=== PATIENT | female | born 1960 | race Caucasian/White ===

== ENCOUNTER 2019-10-28 13:57 | Observation (INO) | payer OTHER ==
--- OUTSIDE RECORDS SUMMARY | 2019-10-28 14:00 | XMS REPORT | Continuity of Care Document ---
:1960 Author Organization [employer] Information [facility] Care Team Providers Name Role Phone [employer] [facility] Unavailable Un available Problems Problem Status Onset Classification Date Comments Sourc e Date Reported Multiple Active 08/05/2013 [facility] S[facility] Medications Medication Details Route Status Patient Ordering Order Source Instructions Provider Date Baclofen 20 MG ; Start Active [facility] Oral Tablet Date: 013 [facility] 3 (Active) Treximet 85-500 ; Start Active [facility] Oral Tablet Date: 013 [facility] 3 (Active) Pristiq 50 MG ; Start Active [facility] Oral Tablet Date: 012 [facility] Extended Release 24 Hour 2 (Active) BusPIRone HCl 10 ; Start Active [facility] Oral Tablet Date: 012 [facility] 2 (Active) Trilipix 135 MG ; Start Active [facility] Oral Capsule Date: 012 [facility] Delayed Release 2 (Active) Hydrocodone-Aceta ; Start Active [facility] minophen 7.5-750 Date: 012 [facility] MG TABS 2 (Active) Transderm-Scop ; Start Active [facility] 1.5 MG Date: 012 [facility] Transdermal Patch 72 Hour 2 (Active) Abilify 10 MG ; Start Active [facility] Oral Tablet Date: 012 [facility] 2 (Active) TiZANidine HCl 2 ; Start Active [facility] Oral Tablet Date: 012 [facility] 2 (Active) Abilify 5 MG Oral ; Start Active [facility] Tablet Date: 012 [facility] 2 (Active) Hydrocodone-Aceta ; Start Active [facility] minophen 7.5-750 Date: 012 [facility] MG Oral Tablet 2 (Active) Imitrex 50 MG ; Start Active [facility] Oral Tablet Date: 012 [facility] 2 (Active) Baclofen 20 MG ; Start Active [facility] Oral Tablet Date: 011 [facility] 1; End Date: 0 (Active) Estradiol 2 MG ; Start Active [facility] Oral Tablet Date: 009 [facility] 9 (Active) Singulair 10 MG ; Start Active [facility] Oral Tablet Date: 009 [facility] 9 (Active) Vytorin 10-40 MG ; Start Active [facility] Oral Tablet Date: 009 [facility] 9 (Active) Copaxone 20 MG/ML ; Start Active [facility] Subcutaneous Kit Date: 008 [facility] 8 (Active) Amantadine HCl ; Start Active [facility] 100 MG Oral Date: 008 [facility] Capsule 8 (Active) Detrol LA 4 MG ; Start Active [facility] Oral Capsule Date: 008 [facility] Extended Release 24 Hour 8 (Active) Cyclobenzaprine ; Start Inactive [facility] HCl 10 MG Oral Date: 900 [facility] Tablet 0; End Date: 0 (Active) Imitrex 6 (Active) Active [facility] MG/0.5ML [facility] Subcutaneous Solution TraZODone HCl 100 (Active) Active [facility] Oral Tablet [facility] Cyclobenzaprine (Active) Active [facility] HCl 10 MG Oral [facility] Tablet Allergies, Adverse Reactions, Alerts Substance Category Reaction Severity Reaction Status Date Comments S ource type Reported No Known drug drug Active [facility] Drug allergy allergy [facility] Allergies Immunizations No Data Provided for This Section Results No Data Provided for This Section Pathology Reports No Data Provided for This Section Diagnostic Reports No Data Provided for This Section Consultation Notes No Data Provided for This Section Discharge Summaries No Data Provided for This Section History and Physicals No Data Provided for This Section Vital Signs No Data Provided for This Section Encounters Location Location Encounter Encounter Reason Attending ADM DC Stat Source Details Type Number For Provider Date Date Visit AUDIT [id number] 03/26 [facility] AUDIT [id number] 09/24 [facility] AUDIT [id number] 10/30 [facility] IES, [id number] 04/01 10/30 [facility] Provider: /2012 [facility] CHRISTINA Cota Y, Status: Pen, Time: 1:00 PM AUDIT [id number] 04/01 [facility] AUDIT [id number] 08/05 08/05 [facility] Procedures No Data Provided for This Section Assessment and Plan No Data Provided for This Section Plan of Care No Data Provided for This Section Social History Social History Date Source No Tobacco Use 08/05/2013 [facility] (Denied) No Alcohol (Denied) No Drug Use (Denied) Never A Smoker (Active) Family History Value Date Source No Family history of Family 08/05/2013 [facility] History (Denied) No Family history of Family 04/01/2013 [facility] History (Denied) No Family history of Family 10/30/2012 [facility] History (Denied) No Family history of Family 09/24/2012 [facility] History (Denied) No Family history of Family 03/26/2012 [facility] History (Denied) Advance Directives Order Name Results Value Date Source Advance Directives Advance Directives No Advance 08/05/2013 [facility] Directives available. Advance Directives Advance Directives No Advance 04/01/2013 [facility] Directives available. Advance Directives Advance Directives No Advance 10/30/2012 [facility] Directives available. Advance Directives Advance Directives No Advance 09/24/2012 [facility] Directives available. Advance Directives Advance Directives No Advance 03/26/2012 [facility] Directives available. Functional Status No Data Provided for This Section
[2019-10-28] MEDS ORDERED: FENTANYL CITR 100 MCG/2 ML ONE (14:20)
[2019-10-28] MEDS ORDERED: MIDAZOLAM HCL 2 MG/2 ML INJ ONE (14:20)
[2019-10-28] MEDS ORDERED: LIDOCAINE 1% MPF 5 ML VIAL ONE (14:20)
[2019-10-28] MEDS ORDERED: propofoL 200 MG/20 ML VIAL IV ONE (14:20)
[2019-10-28] MEDS: NS 0.9% VIAL 10 ML ONE ×2 (14:29→20:14)
[2019-10-28] MEDS ORDERED: CEFAZOLIN SODIUM 1 GM/VIAL ONE (14:29)
[2019-10-28] MEDS ORDERED: dexAMETHasone 10 MG/ML VIAL ONE (14:49)
[2019-10-28] MEDS ORDERED: KETOROLAC 30 MG/ML INJ ONE (14:49)
[2019-10-28] MEDS ORDERED: ONDANSETRON 4 MG/2 ML VIAL ONE (15:00)
[2019-10-28] MEDS ORDERED: ONDANSETRON 4 MG/2 ML VIAL IV PRN (15:22)
[2019-10-28 16:04] LABS: Absolute Lymphocytes (CBC) 2.2 K/uL (0.7-4.9); Basophils % 0.6 % (0-1.3); Hematocrit 35.3 % (36.0-45.0); Lymphocytes % 44.1 % (15.3-44.8); MPV 8.7 fL (7.6-11.3)
[2019-10-28 16:21] LABS: Potassium 4.6 mmol/L (3.5-5.1)
[2019-10-28 16:23] LABS: Protime INR 0.91
[2019-10-28 16:28] VITALS: BMI 29.6
[2019-10-28] MEDS: NACHLORIDE 0.45% 1,000 ML IV SCH (16:49)
[2019-10-28] MEDS: HYDROMORPHONE HCL 1 MG/ML INJ IV PRN ×3 (16:52→22:52)
--- NOTE | 2019-10-28 18:22 | P.SSS ---
Patient History Date of Service: 10/28/19 Reason for admission: ABSCESS L LATERAL ABDOMEN History of Present Illness: LATONIA IS AN MS PATIENT WHO HAD ESCHAR ON THE ULCER FROM SHINGLES BUT FAILED TO IMPROVE. TODAY I FELT SIGNIFICANT INDUARATION ABOUT 5 CM DIAMETER AROUND THE ESCHAR THAT IT SELF IS ABOUT 3-4 CM. I ADMITTED HER AND ASKED DR. GOLDBERG TO DO DEBRIDEMENT AND DRAIN THE ABSCESS. HE TOOK HER AT 3 PM TODAY. Allergies No Known Allergies Allergy (Verified 10/28/19 13:02) Home Medications: ARIPiprazole [Abilify*] 10 mg PO DAILY 10/28/19 Aspirin [Aspirin EC 81 MG] 81 mg PO DAILY 10/28/19 Atorvastatin Calcium [Lipitor*] 20 mg PO DAILY 10/28/19 Baclofen 10 mg PO BEDTIME 10/28/19 Baclofen [Lioresal*] 20 mg PO DAILY 10/28/19 Ca Citrate/Mgox/Vit D3/B6/Min [Citracal Plus Tablet] 1 tab PO DAILY 10/28/19 Cholecalciferol (Vitamin D3) [Vitamin D 1000 Iu Tab*] 1,000 unit PO DAILY 10/28/19 Fenofibrate,Micronized [Fenofibrate] 200 mg PO DAILY 10/28/19 Gabapentin 300 mg PO BID 10/28/19 Glatiramer Acetate [Glatopa] 40 mg SQ M,W,F 10/28/19 Imipramine HCl [Tofranil*] 25 mg PO DAILY 10/28/19 Montelukast [Singulair*] 10 mg PO DAILY 10/28/19 Multivit-Min/Folic Acid/Vit K1 [Multi For Her 50 Plus Softgel] 1 tab PO DAILY 10/28/19 Venlafaxine HCl [Effexor*] 75 mg PO DAILY 10/28/19 traMADol HCL [Ultram*] 100 mg PO BIDP PRN 10/28/19 - Past Medical/Surgical History Has patient received pneumonia vaccine in the past: Yes Diabetic: No -: Multiple Sclerosis -: Pancreatitis -: -: Cholecystectomy -: Back Surgery -: Breast Augmentation -: Tummy Tuck -: Liposuction - Social History Smoking Status: Never smoker Alcohol use: No CD- Drugs: No Caffeine use: Yes Place of Residence: Home Review of Systems 10-point ROS is otherwise unremarkable Physical Examination - Vital Signs Temperature: 97.3 F Blood Pressure: 122/67 Pulse: 89 Respirations: 18 Pulse Ox (%): 96 - Physical Exam General: Moderate distress HEENT: Atraumatic, PERRLA, Mucous membr. moist/pink, EOMI, Sclerae nonicteric Neck: Supple, 2+ carotid pulse no bruit, No LAD, Without JVD or thyroid abnormality Respiratory: Clear to auscultation bilaterally, Normal air movement Cardiovascular: Regular rate/rhythm, Normal S1 S2 Gastrointestinal: Normal bowel sounds, No tenderness Musculoskeletal: No tenderness Integumentary: No rashes, Other ( ABOVE ABSCESS.) Neurological: Normal gait, Normal speech, Normal strength at 5/5 x4 extr, Normal tone, Normal affect Lymphatics: No axilla or inguinal lymphadenopathy - Studies Laboratory Data (last 24 hrs) 10/28/19 15:45: Sodium 141, Potassium 4.6, BUN 17, Creatinine 0.91, Glucose 97 10/28/19 15:45: PT 10.7, INR 0.91, APTT 30.5 10/28/19 15:45: WBC 5.1, Hgb 11.5 L, Hct 35.3 L, Plt Count 263 - Diagnosis (Problem(s)) (1) Complicated open wound of left hip Current Visit: No Status: Acute Plan: I AND D TODAY. IV ROCEPHIN. MAY NOT BE MRSA. DR. GOLDBERG WILL DO CULTURE AT SURGERY. PAIN MX. [place] SC. Qualifiers: Encounter type: initial encounter Qualified Code(s): S71.002A - Unspecified open wound, left hip, initial encounter - Disposition Disposition: ROUTINE DISCHARGE
--- NOTE | 2019-10-28 19:51 | PREOPCON ---
Date of Consultation: 10/28/2019 Chief Complaint: Wound on left hip. History Of Present Illness: Patient is a 59-year-old female, who developed a wound on her left hip f ollowing a bout with shingles. She came to the wound healing center, was seen by Dr. Mackey, needed s urgical debridement and I was consulted. She is awake and alert. Denies any fever; although, she milligan d low grade temperature earlier today, 99. She has no purulent discharge. No sore throat, runny nos e, cough, headaches, or dizziness. No chest pain. Review of Systems: Otherwise unremarkable. Past Medical History: MS. Surgical History: Cholecystectomy, sinus surgery, breast augmentation, abdominoplasty, back surgery. Allergies: NO ALLERGIES. Social History: Does not smoke. Drinks occasionally. Family History: Noncontributory. Physical Examination: Vital Signs: Stable, afebrile. General: Awake, alert, and oriented x3. Head And Neck: Cranial nerves 2 through 12 grossly within normal limits. No neck masses. No JVD. Throat clear. Neck is supple. Chest: Clear. Heart: S1, S2. Abdomen: Soft. EXTREMITIES: Neurovascularly intact. Neuro is nonfocal. Left hip, there is approxima tely a 6 x 4 cm area of necrotic eschar with surrounding erythema. Assessment: Infected wound, left hip. Plan: Excisional debridement of the infected wound. This wound will likely need to heal secondarily . Plan of care discussed with the patient. She understands risks, benefits, and alternatives and ag minoo to procedure. /MODL Voice ID: [id number] Report ID: [id number]
[2019-10-28] MEDS: CEFTRIAXONE/SWI 1gm 1 GM/10 ML SYR IVP SCH (20:12)
[2019-10-29] MEDS: HYDROMORPHONE HCL 1 MG/ML INJ IV PRN ×4 (01:03→08:11)
--- NOTE | 2019-10-29 01:13 | OP ---
Date of Procedure: 10/28/2019 Surgeon: Conor Brito MD Preoperative Diagnosis: Infected wound, left hip. Postoperative Diagnosis: Infected wound, left hip. Procedure: Excisional debridement of left hip wound to subcutaneous tissue 6 x 4 cm. Estimated Blood Loss: Minimal. Specimens: Necrotic tissue and culture and sensitivity of the infected tissue. Findings: As above. Anesthesia: General. Complications: None. Patient tolerated the procedure in stable condition, was taken to Recovery in good general condition. Procedure In Detail: Patient was brought to the OR and placed in supine position and general anesthe parker began. Patient was placed in the right lateral position, prepped and draped in the usual sterile fashion. Then Marcaine 0.5% was infiltrated locally. Then, a 15 blade was used to make a 6 x 4 cm incision to cut out the necrotic eschar. Cultures were done of the necrotic eschar and this debridem ent went all the way down to the subcutaneous tissue. Wound irrigated. Bleeding controlled with cau blane. Wet-to-dry normal saline dressing change applied. Patient tolerated the procedure in stable condition and taken to Rec overy in good general condition. /MODL Voice ID: [id number] Report ID: [id number]
[2019-10-29] MEDS: NACHLORIDE 0.45% 1,000 ML IV SCH ×2 (03:14→05:20)
[2019-10-29] MEDS: CEFTRIAXONE/SWI 1gm 1 GM/10 ML SYR IVP SCH (08:03)
[2019-10-29 08:27] VITALS: O2SAT 94
[2019-10-29] MEDS ORDERED: ENOXAPARIN 40 MG/0.4 ML SQ SCH (09:00)
[2019-10-29 09:28] VITALS: BP 101/58; TEMP 98.4
--- NOTE | 2019-10-29 14:49 | PN ---
Date of Progress Note: 10/29/2019 Subjective: Patient is awake, alert. No complaints. Objective: Vital Signs: Stable, afebrile. Skin: Dressing clean, dry, and intact. Assessment: Status post debridement of a necrotic eschar on the left hip. Recommendations: Antibiotics are ordered. Wound care is ordered. Follow up in the Wound Healing Ce nter in my clinic in 1 week. /MODL Voice ID: [id number] Report ID: [id number]
== END 2019-10-29 10:48 | disposition home health service (06) ==
LOC: 2ND 13:57
PROVIDERS: ADMIT Internal Medicine; ATTEND Internal Medicine
PROC: 0JBM0ZZ Excision of Left Upper Leg Subcutaneous Tissue and Fascia, Open Approach (ICD-10-PCS; principal; 2019-10-28 14:00)
DX: I96 Gangrene, not elsewhere classified (principal); L97.822 Non-pressure chronic ulcer of other part of left lower leg with fat layer exposed; L03.116 Cellulitis of left lower limb; Z11.59 Encounter for screening for other viral diseases; G35 Multiple sclerosis; Z79.82 Long term (current) use of aspirin; Z79.899 Other long term (current) drug therapy
CPT/HCPCS: 87070; 85025; 80048; 36415; 87205; 85610; 88304; 85730; 87077; 87186; 87176; 11042; 11045; U0002; J2704; J1650; J2250; J3010; J1100; J1170 ×7; J0696 ×2; J2405; J0690; G0379; G0378 ×3